=== PATIENT | female | born 1970 | race Caucasian/White ===

== ENCOUNTER 2022-09-14 09:44 | Emergency (ER) | payer OTHER | END 2022-09-14 11:25 | disposition home or self-care (01) | LOC: VM.ED 09:44 | DX: S06.0X0A Concussion without loss of consciousness, initial encounter (principal); Z88.5 Allergy status to narcotic agent; Z88.8 Allergy status to other drugs, medicaments and biological substances; Z79.899 Other long term (current) drug therapy; V48.5XXA Car driver injured in noncollision transport accident in traffic accident, initial encounter; Y92.410 Unspecified street and highway as the place of occurrence of the external cause | CPT/HCPCS: 99283 ==